=== PATIENT | female | born 1970 | race Caucasian/White ===

== ENCOUNTER 2021-04-28 10:54 | Outpatient (CLI) | payer BC | END 2021-04-28 10:55 | disposition home or self-care (01) | LOC: BURRAD 10:54 | PROVIDERS: ATTEND Family Medicine | DX: M25.561 Pain in right knee (principal); M25.461 Effusion, right knee ==

== ENCOUNTER 2022-03-26 09:50 | Emergency (ER) | payer BC ==
[2022-03-26 10:21] LABS: #Basophils 0.1 thou/uL (0.0-0.2); #Eosinphils 0.2 thou/uL (0.0-0.7); #Lymphocytes 2.7 thou/uL (1.20-3.40); #Neutrophils 12.1 thou/uL (1.40-6.50); %Basophils 0.5 % (0.0-1.0); %Eosinophils 1.1 % (0.0-10.0); %Lymphocytes 16.6 % (21.0-51.0); %Monocytes 6.3 % (0.0-10.0); %Neutrophils 75.6 % (42.0-75.0); Mean Corpuscular HGB CONC 32.7 g/dL (32.0-36.0); Mean Corpuscular Hemoglobin 31.7 pg (27.0-31.0); Mean Corpuscular Volume 96.9 fL (78.0-98.0); Mean Platelet Volume 7.7 fL (7.4-10.4); Platelet Count 413 thou/uL (130-400); RBC Distribution Width 12.6 % (11.5-14.5); Red Blood Cell (RBC) Count 4.74 mill/uL (4.20-5.40)
[2022-03-26 10:30] LABS: Bilirubin Negative (Negative); Blood, Urine Moderate (Negative); Clarity Clear (Clear); Glucose, Urine (Dipstick) Negative (Negative); Ketone, Urine Negative (Negative); Leukocyte Negative (Negative); Nitrite Negative (Negative); Protein, Urine (Dipstick) Negative (Neg-Trace); Specific Gravity, Urine 1.015 (1.005-1.030); Urobilinogen 0.2 mg/dL (Less than 2)
[2022-03-26] MEDS ORDERED: Ondansetron PF 4 MG/2 ML Vial ONE (10:30)
[2022-03-26] MEDS ORDERED: Morphine 4 MG/ML VIAL ONE (10:30)
[2022-03-26 10:33] LABS: Bacteria/HPF 1+ HPF (None Seen); RBC/HPF 0-3 HPF (0-3); Squamous Epithelial 0-3 HPF (0-3); WBC/HPF 0-3 HPF (0-3)
[2022-03-26 10:35] LABS: ALT (SGPT) 26 U/L (8-55); AST (SGOT) 18 U/L (5-34); Albumin 4.6 g/dL (3.5-5.0); Alkaline Phosphatase 74 U/L (40-110); Anion Gap 17 mmol/L (10-20); BUN (Urea Nitrogen) 8 mg/dL (9.8-20.1); Bilirubin, Total 0.5 mg/dL (0.2-1.2); Calc. Creatinine Clearance 0 mL/min (70-130); Calcium 9.9 mg/dL (7.8-10.44); Carbon Dioxide 23 mmol/L (22-29); Chloride 103 mmol/L (98-107); Globulin 3.7 g/dL (2.4-3.5); Glucose 99 mg/dL (70-105); Lipase 22 U/L (8-78); Potassium 3.9 mmol/L (3.5-5.1); Protein, Total 8.3 g/dL (6.0-8.3); Sodium 139 mmol/L (136-145)
== END 2022-03-26 13:33 | disposition home or self-care (01) ==
LOC: BURERS 09:50
DX: K57.32 Diverticulitis of large intestine without perforation or abscess without bleeding (principal); E03.9 Hypothyroidism, unspecified; Z87.891 Personal history of nicotine dependence
CPT/HCPCS: 74177; 80053; 81003; 81015; 83690; 85025; 96365; 96375; J1956; J2270; J2405